=== PATIENT | male | born 1990 | race Two or more races ===

== ENCOUNTER 2020-04-10 15:57 | Emergency (ER) | payer OTHER ==
[~2020-04-10] VITALS: Ht 177.8 cm; Wt 127.0 kg
[~2020-04-10 15:57] MED LIST: CLARITIN-D 241 EACH PO; FLONASE16 GM NASAL; augmentin PO
[2020-04-10] MEDS ORDERED: CIPRO500 MG PO (17:45)
== END 2020-04-10 20:11 | disposition home or self-care (01) ==
LOC: ER 15:57
DX: S61.220A Laceration with foreign body of right index finger without damage to nail, initial encounter (principal); W27.0XXA Contact with workbench tool, initial encounter; Y93.89 Activity, other specified; Y92.89 Other specified places as the place of occurrence of the external cause; Y99.8 Other external cause status